=== PATIENT | female | born 1970 | race Caucasian/White ===

== ENCOUNTER 2021-05-25 15:02 | Emergency (ER) | payer OTHER ==
[~2021-05-25] VITALS: Ht 154.9 cm; Wt 101.2 kg
[2021-05-25 15:12] VITALS: BP 150/93
--- NOTE | 2021-05-25 15:22 | NUR ---
PT AMB TO BED 7
[2021-05-25] MEDS ORDERED: ACETAMINOPHEN 325 MG TAB PO ONE (15:25)
[2021-05-25] MEDS ORDERED: IBUPROFEN 600 MG TAB PO ONE (15:25)
[2021-05-25] MEDS ORDERED: IBUP-2213 PO (15:26)
--- NOTE | 2021-05-25 15:39 | NUR ---
Patient discharged with v/s stable. Written and verbal after care instructions given BICIPITAL TENDONITIS, AND SHOULDER SPRAIN and explained. Patient alert, oriented and verbalized understanding of instructions. Ambulatory with steady gait. All questions addressed prior to discharge. ID band removed. Patient advised to follow up with PMD. Rx of IBUPRROFEN given. Patient educated on indication of medication including possible reaction and side effects. Opportunity to ask questions provided and answered.
[2021-05-25 15:51] VITALS: BP 150/93
--- NOTE | 2021-05-25 15:53 | NUR ---
The patient's care was reviewed and supervised by Vonda Peter RN.
== END 2021-05-25 15:39 | disposition home or self-care (01) ==
LOC: MED 15:02
DX: S43.402A Unspecified sprain of left shoulder joint, initial encounter (principal); M75.22 Bicipital tendinitis, left shoulder; W19.XXXA Unspecified fall, initial encounter; Y93.89 Activity, other specified; Y92.128 Other place in nursing home as the place of occurrence of the external cause; Y99.0 Civilian activity done for income or pay
CPT/HCPCS: 99283